=== PATIENT | male | born 1965 | race Caucasian/White ===

== ENCOUNTER → 2018-12-29 | Outpatient (CLI) | payer SELFPAY | LOC: LABWHC1 14:44 | PROVIDERS: ATTEND Orthopaedic Surgery | DX: M71.162 Other infective bursitis, left knee (principal); M25.462 Effusion, left knee | CPT/HCPCS: 87070; 87075; 87205 ==

== ENCOUNTER → 2024-05-25 | Outpatient (CLI) | payer BC ==
--- NOTE | 2024-05-25 15:27 | CT ---
EXAMINATION TYPE: CT ChestAbdPelvis w con CT DLP: 829 mGycm, Automated exposure control for dose reduction was used. DATE OF EXAM: 05/25/2024 11:30 AM COMPARISON: None CLINICAL INDICATION:Male, 59 years old with history of R63.4 ABNORMAL WEIGHT LOSS; PHH, abnormal weig ht loss Technique: Multiple axial images of the chest, abdomen, and pelvis were obtained following the intrav enous administration of 100 mL Isovue-300. Oral contrast was administered. Two-dimensional coronal an d sagittal reconstructions were obtained. Findings: CHEST: LUNGS/ PLEURA: Biapical pleural-parenchymal scarring. Mild centrilobular emphysematous changes. No pl eural effusion, pneumothorax, focal consolidation. Linear atelectasis within the lingula. No suspicio us pulmonary nodule or mass. AIRWAY: Patent and unremarkable.. HEART: Size within normal limits. No pericardial effusion. MEDIASTINUM: No lymph nodes measure greater than 1 cm short axis. A few calcified granulomas within t he right hilum and mediastinum. VASCULATURE: No aortic aneurysm. MUSCULOSKELETAL: No acute osseous abnormalities. No aggressive osseous lesion. Schmorl's node involvi ng the superior endplate of the T5 vertebral body. SOFT TISSUES/LYMPH NODES: Unremarkable. LOWER NECK: No significant findings. ABDOMEN: Limited examination due to paucity of intra-abdominal fat. ABDOMEN LIVER: Unremarkable GALLBLADDER AND BILE DUCTS: Unremarkable. PANCREAS: Unremarkable. SPLEEN: Unremarkable. ADRENAL GLANDS: Unremarkable. KIDNEYS AND URETERS: No evidence of hydronephrosis. Nonobstructive left lower pole 3 mm calculus. The kidneys enhance symmetrically. Contrast is demonstrated within both collecting systems on the delaye d phase. Circumaortic left renal vein. PELVIS BLADDER: Unremarkable REPRODUCTIVE: Coarse calcifications of the prostate gland are identified. Prominent prostate gland me asure 4.4 cm in transverse dimension. ABDOMEN & PELVIS STOMACH AND BOWEL: Stomach and duodenum are unremarkable. No focal wall thickening or surrounding inf lammatory changes. Mild to moderate colonic stool. Enteric contrast reaches the distal small bowel. N o evidence of bowel obstruction. PERITONEUM: No evidence of pneumoperitoneum or free fluid. VASCULATURE: Mild atherosclerotic calcifications are present throughout the abdominal aorta and its b ranches. MUSCULOSKELETAL: No acute osseous abnormalities. No aggressive osseous lesion. Lower lumbar spine deg enerative disc disease. LYMPH NODES: No evidence for lymphadenopathy. SOFT TISSUE/ABDOMINAL WALL: Unremarkable IMPRESSION: 1. No acute process within the chest, abdomen or pelvis. 2. Mild COPD changes. 3. Nonobstructive left renal calculus. [facility], , 05/25/2024 3:25 PM
== END | disposition home or self-care (01) ==
LOC: RADCTMAIN 09:14
PROVIDERS: ATTEND Family Medicine
DX: R63.4 Abnormal weight loss
CPT/HCPCS: 71260; 74177

== ENCOUNTER → 2024-05-28 | Outpatient (CLI) | payer BC ==
[2024-05-28 08:24] LABS: Ionized Calcium 4.6 mg/dL (4.5-5.3)
[2024-05-28 10:41] LABS: Magnesium 1.9 mg/dL (1.5-2.4)
[2024-06-02 16:35] LABS: Albumin, LC/MS/MS 3.8 g/dL (3.6-5.1); Testosterone, Free, LC/MS/MS 33.3 pg/mL (46.0-224.0)
== END | disposition home or self-care (01) ==
LOC: LABWHC1 07:37
PROVIDERS: ATTEND Family Medicine
CPT/HCPCS: 36415; 82040; 82306; 82330; 83735; 83970; 84270; 84403

== ENCOUNTER → 2025-03-14 | Outpatient (CLI) | payer BC ==
--- NOTE | 2025-03-14 13:05 | MR ---
INDICATION: Patient age:Male; 59 years old; Reason for study: M54.12 RADICULOPATHY, CERVICAL REGION; PHH. COMPARISON: None. TECHNIQUE: Multi planar, multi sequence imaging was performed of the cervical spine. No Gadolinium wa s given. FINDINGS: Alignment: The cervical vertebral bodies have preserved heights. Grade 1 retrolisthesis of C5 on C6. Bones: Anterior from C4 through C6. Type II Modic changes involving the endplates around the C4-C5 di sc. Cord: The spinal cord is unremarkable with regards to their signal intensity and morphology. Discs: Multilevel disc desiccation is present. Disc height loss at C4-C5 and C5-C6. C2-C3: No significant disc pathology. The spinal canal is patent. No neural foraminal stenosis. C3-C4: No significant disc pathology. The spinal canal is patent. No neural foraminal stenosis. C4-C5: Uncovertebral with broad-based disc bulge. Mild effacement of the anterior thecal sac. No abu tment of the ventral spinal cord. No significant spinal canal stenosis. Uncovertebral joint hypertrop hy. Mild bilateral neural foraminal stenosis. C5-C6: Broad-based disc bulge with mild effacement of the anterior thecal sac. No abutment of the michelle tral spinal cord. Uncovertebral joint hypertrophy. Moderate to severe right neural foraminal stenosis . Mild left neural foraminal stenosis. C6-C7: Broad-based disc bulge. No significant effacement of the anterior thecal sac. No spinal canal stenosis. Uncovertebral joint hypertrophy. Mild to moderate right neural foraminal stenosis. The left neural foramen is patent. C7-T1: No significant disc pathology. The spinal canal is patent. No neural foraminal stenosis. Other: None. IMPRESSION: 1. No evidence for disc herniation or significant spinal canal stenosis. 2. Multilevel disc degeneration with associated osteoarthritic changes as described above. Most prono unced from C4 through C6. 3. Grade 1 retrolisthesis of C5 on C6. [facility], , 03/14/2025 1:02 PM
== END | disposition home or self-care (01) ==
LOC: RADMRIMAIN 10:59
PROVIDERS: ATTEND Family Medicine
DX: M50.123 Cervical disc disorder at C6-C7 level with radiculopathy (principal); M43.12 Spondylolisthesis, cervical region
CPT/HCPCS: 72141